=== PATIENT | female | born 1985 | race African-American/Black ===

== ENCOUNTER 2017-05-24 06:32 | Emergency (ER) | payer OTHER ==
[~2017-05-24] VITALS: Ht 149.9 cm; Wt 78.0 kg
[2017-05-24 06:40] VITALS: BP 122/89; PULSE 54; RESP 16; TEMP 98.2; O2SAT 100
[2017-05-24] MEDS ORDERED: LEXA5TAB PO (07:39)
[2017-05-24] MEDS ORDERED: LAMO25CH CHEW (08:25)
[2017-05-24] MEDS ORDERED: LAMO25TA PO (08:25)
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
== END 2017-05-24 10:34 | disposition home or self-care (01) ==
LOC: NEPE 06:32
DX: F43.20 Adjustment disorder, unspecified (principal); F32.9 Major depressive disorder, single episode, unspecified; F43.10 Post-traumatic stress disorder, unspecified; F17.210 Nicotine dependence, cigarettes, uncomplicated; Z76.0 Encounter for issue of repeat prescription; Z79.899 Other long term (current) drug therapy
CPT/HCPCS: 99283

== ENCOUNTER 2017-05-27 07:50 | Emergency (ER) | payer OTHER ==
[~2017-05-27] VITALS: Ht 149.9 cm; Wt 78.0 kg
[~2017-05-27 07:50] MED LIST: LAMO25CH CHEW; LAMO25TA PO; LEXA5TAB PO
[2017-05-27 07:53] VITALS: BP 124/77; PULSE 59; RESP 16; TEMP 99.3; O2SAT 100
[2017-05-27 08:22] VITALS: BP 116/81; PULSE 56; RESP 18; TEMP 98.7; O2SAT 100
[2017-05-27] MEDS ORDERED: LAMO25TA PO (09:09)
[2017-05-27 10:27] VITALS: BP 106/68; PULSE 63; RESP 16; O2SAT 97
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
[2017-05-27 13:02] LABS: AUTOMATED NEUTROPHIL # 2.3 TH/MM3 (1.8-7.7); BASOPHIL % 0.8 % (0.0-2.0); EOSINOPHIL % 0.8 % (0.0-4.0); HEMATOCRIT 38.5 % (35.0-46.0); HEMOGLOBIN 12.9 GM/DL (11.6-15.3); LYMPH % 39.2 % (9.0-44.0); LYMPHOCYTE # 1.8 TH/MM3 (1.0-4.8); MEAN CELL VOLUME 90.2 FL (80.0-100.0); MEAN CORPUSCULAR HEMOGLOBIN 30.3 PG (27.0-34.0); MEAN CORPUSCULAR HGB CONC 33.6 % (32.0-36.0); MEAN PLATELET VOLUME 7.5 FL (7.0-11.0); MONOCYTE # 0.4 TH/MM3 (0-0.9); NEUT % 51.2 % (16.0-70.0); PLATELET COUNT 346 TH/MM3 (150-450); RED BLOOD COUNT 4.27 MIL/MM3 (4.00-5.30); RED CELL DISTRIBUTION WIDTH 13.2 % (11.6-17.2); WHITE BLOOD COUNT 4.5 TH/MM3 (4.0-11.0)
[2017-05-27 13:06] LABS: ALBUMIN 2.9 GM/DL (3.4-5.0); ALT (GPT) 19 U/L (10-53); AST (GOT) 15 U/L (15-37); BICARBONATE 28.9 MEQ/L (21.0-32.0); BLOOD UREA NITROGEN 12 MG/DL (7-18); CALCIUM 8.2 MG/DL (8.5-10.1); CHLORIDE 108 MEQ/L (98-107); CREATININE 0.81 MG/DL (0.50-1.00); GLOMERULAR FILTRATION RATE 100 ML/MIN (>89); GLUCOSE,RANDOM 90 MG/DL (74-106); SODIUM (NA) 141 MEQ/L (136-145)
[2017-05-27 13:16] LABS: ACETAMINOPHEN LESS THAN 2.0 MCG/ML (10.0-30.0); ALKALINE PHOSPHATASE 46 U/L (45-117); TOTAL BILIRUBIN ADULT 0.2 MG/DL (0.2-1.0)
--- NOTE | 2017-05-27 16:10 | PD ---
Physical Exam Time Seen by Provider: 16:08 CODY Pressley has evaluated the patient and cleared the patient for discharge. Data Data Last Documented VS Vital Signs Date Time Temp Pulse Resp B/P (MAP) Pulse Ox O2 Delivery O2 Flow Rate FiO2 05/27/17 10:27 63 16 106/68 (81) 97 Room Air 05/27/17 08:22 98.7 Orders Orders Psych Screen (05/27/17 08:30) Diet Regular Basic (05/27/17 Breakfast) Complete Blood Count With Diff (05/27/17 10:48) Comprehensive Metabolic Panel (05/27/17 10:48) Thyroid Stimulating Hormone (05/27/17 10:48) Drug Screen, Random Urine (05/27/17 10:48) Alcohol (Ethanol) (05/27/17 10:48) Salicylates (Aspirin) (05/27/17 10:48) Tylenol (Acetaminophen) (05/27/17 10:48) Diet Regular Basic (05/27/17 Lunch) Diet Regular Basic (05/27/17 Dinner) Labs Laboratory Tests Test 05/27/17 12:17 05/27/17 13:45 White Blood Count 4.5 TH/MM3 Red Blood Count 4.27 MIL/MM3 Hemoglobin 12.9 GM/DL Hematocrit 38.5 % Mean Corpuscular Volume 90.2 FL Mean Corpuscular Hemoglobin 30.3 PG Mean Corpuscular Hemoglobin Concent 33.6 % Red Cell Distribution Width 13.2 % Platelet Count 346 TH/MM3 Mean Platelet Volume 7.5 FL Neutrophils (%) (Auto) 51.2 % Lymphocytes (%) (Auto) 39.2 % Monocytes (%) (Auto) 8.0 % Eosinophils (%) (Auto) 0.8 % Basophils (%) (Auto) 0.8 % Neutrophils # (Auto) 2.3 TH/MM3 Lymphocytes # (Auto) 1.8 TH/MM3 Monocytes # (Auto) 0.4 TH/MM3 Eosinophils # (Auto) 0.0 TH/MM3 Basophils # (Auto) 0.0 TH/MM3 CBC Comment DIFF FINAL Differential Comment Blood Urea Nitrogen 12 MG/DL Creatinine 0.81 MG/DL Random Glucose 90 MG/DL Total Protein 7.0 GM/DL Albumin 2.9 GM/DL Calcium Level 8.2 MG/DL Alkaline Phosphatase 46 U/L Aspartate Amino Transf (AST/SGOT) 15 U/L Alanine Aminotransferase (ALT/SGPT) 19 U/L Total Bilirubin 0.2 MG/DL Sodium Level 141 MEQ/L Potassium Level 3.6 MEQ/L Chloride Level 108 MEQ/L Carbon Dioxide Level 28.9 MEQ/L Anion Gap 4 MEQ/L Estimat Glomerular Filtration Rate 100 ML/MIN Thyroid Stimulating Hormone 3rd Gen 0.683 uIU/ML Salicylates Level LESS THAN 1.7 MG/DL Acetaminophen Level LESS THAN 2.0 MCG/ML Ethyl Alcohol Level LESS THAN 3 MG/DL Urine Opiates Screen NEG Urine Barbiturates Screen NEG Urine Amphetamines Screen NEG Urine Benzodiazepines Screen NEG Urine Cocaine Screen NEG Urine Cannabinoids Screen POS MDM Supervised Visit with [facility]: No Narrative Course CODY Velarde has evaluated the patient and cleared the patient for discharge. Patient contracts safety. Denies suicidal or homicidal ideations. Patient will be provided community resource packet to /[facility] for follow-up. Has friends and family for support. Patient was medically cleared by alternate provider prior to psych screening. Patient has been evaluated by psychiatry and and is now cleared for discharge. Diagnosis Primary Impression: Adjustment disorder Qualified Codes: F43.20 - Adjustment disorder, unspecified Referrals: [facility] (Out patient) [facility] Primary Care Physician Psychiatrist [facility] Patient Instructions: General Instructions, Mood Disorders (ED) Additional Instruction: Contract safety to your self and others Follow-up with psychiatry Follow-up with primary care provider Follow-up with [facility] Return to the emergency department immediately with worsening of symptoms Med/Other Pt SpecificInfo: No Change to Meds, No Meds Exist/No RX given Disposition: 01 DISCHARGE HOME Condition: Stable Melissa Morris May 27, 2017 16:10
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
== END 2017-05-27 17:42 | disposition home or self-care (01) ==
LOC: NEPJ 07:50
DX: F43.20 Adjustment disorder, unspecified (principal); F32.9 Major depressive disorder, single episode, unspecified; F17.210 Nicotine dependence, cigarettes, uncomplicated
CPT/HCPCS: 80053; 80307; 84443; 85025; 99283